=== PATIENT | male | born 1985 | race Caucasian/White ===

== ENCOUNTER → 2024-06-22 09:03 | Outpatient (CLI) | payer OTHER, SELFPAY ==
--- NOTE | 2024-06-22 09:05 | DI.RAD.S_ITS ---
PROCEDURE: XR KNEE LT 3V INDICATIONS: left medial knee pn w/ bending/stepping TECHNIQUE: 3 views of the knee were acquired. COMPARISON: None. FINDINGS: Bones: No fractures or dislocations. No suspicious bony lesions. Soft tissues: No joint effusion. No suspicious soft tissue calcifications. IMPRESSION: No acute bony abnormality or significant effusion. Dictated by: Yuniel rFy M.D. on 06/22/2024 at 9:20 Approved by: Yuniel Fry M.D. on 06/22/2024 at 9:22
== END ==
LOC: RAD 09:05
PROVIDERS: PCP Family Medicine; Referring Provider Student in an Organized Health Care Education/Training Program; Visit Provider Student in an Organized Health Care Education/Training Program
DX: S83.90XA Sprain of unspecified site of unspecified knee, initial encounter (principal); X58.XXXA Exposure to other specified factors, initial encounter
CPT/HCPCS: 73562